=== PATIENT | female | born 1990 | race Caucasian/White ===

== ENCOUNTER 2019-11-15 13:21 | Outpatient (CLI) | payer BC, SELFPAY ==
--- NOTE | ~2019-11-15 | US_ITS ---
US OB limited DATE: 11/15/2019 14:00 INDICATION: Vaginal spotting during TECHNIQUE: Real-time imaging via transabdominal approach COMPARISON: None FINDINGS: There is a live sterling intrauterine gestation. heart rate of 157 bpm. The placenta is anterior fundal. Normal amount of amniotic fluid. No subchorionic hemorrhage is noted. No retropl acental hemorrhage is detected. IMPRESSION: No significant abnormality Reviewed, dictated and finalized at [facility]. Reviewed, dictated and finalized at location A. IMPRESSION: No significant abnormality
== END 2019-11-15 13:22 | disposition home or self-care (01) ==
PROVIDERS: Visit Provider Nurse Practitioner
DX: O26.852 Spotting complicating pregnancy, second trimester (principal); Z3A.00 Weeks of gestation of pregnancy not specified
CPT/HCPCS: 76815

== ENCOUNTER → 2019-12-27 14:37 | Outpatient (CLI) | payer BC, SELFPAY ==
--- NOTE | ~2019-12-27 | US_ITS ---
EXAMINATION: US OB >= 14 weeks Fetus DATE: 12/27/2019 15:09 INDICATION: Second trimester anatomic survey TECHNIQUE: Real-time ultrasound of the pelvis was performed. COMPARISON: None. FINDINGS: There is a single living fetus in vertex presentation. The placenta is fundal. heart rate is 14 8 beats per minute (bpm). cardiac activity and movement are noted. The amniotic fluid in dex is subjectively normal. The following anatomy was identified as normal: 4 chamber heart 3 vessel cord cord insertion kidneys urinary bladder stomach spine diaphragm ventricles cisterna magna cerebellum The following biometric data were obtained: Biparietal diameter (BPD): 4.5 cm; head circumference (HC): 16.9 cm; abdominal circumference (AC): 14 .4 cm; femur length (FL): 2.9 cm. These measurements are concordant. Estimated weight is 294 g +/- 44 g, which correlates with the 8th percentile when 05/12/2020 is used as estimated date of delivery. As single measurements, these parameters are each equal to the following estimated gestational ages w ith ranges of +/- 2 standard deviations: BPD: 19 weeks 5 days ( 18 weeks 0 days - 21 weeks 3 days). HC: 19 weeks 4 days ( 18 weeks 1 days - 21 weeks 1 days). AC: 19 weeks 6 days ( 17 weeks 5 days - 21 weeks 6 days). FL: 19 weeks 0 days ( 17 weeks 2 days - 20 weeks 6 days). estimated gestational age based solely on measurements from this exam is 19 weeks 4 days +/- 1 weeks 3 days. IMPRESSION: 1. Single living fetus in vertex presentation. 2. Estimated weight is 294 g +/- 44 g, which correlates with the 8th percentile when 05/12/2020 is used as estimated date of delivery. Reviewed, dictated and finalized at location A. IMPRESSION: 1. Single living fetus in vertex presentation. 2. Estimated weight is 294 g +/- 44 g, which correlates with the 8th perc entile when 05/12/2020 is used as estimated date of delivery.
== END ==
PROVIDERS: Visit Provider Nurse Practitioner
DX: Z34.92 Encounter for supervision of normal pregnancy, unspecified, second trimester (principal); Z3A.19 19 weeks gestation of pregnancy
CPT/HCPCS: 76805

== ENCOUNTER → 2020-04-04 11:07 | Outpatient (CLI) | payer BC, SELFPAY ==
--- NOTE | ~2020-04-04 | US_ITS ---
US OB follow up DATE: 04/04/2020 11:33 INDICATION: Size less than dates TECHNIQUE: Real-time imaging and Doppler analysis COMPARISON: 12/27/2019 obstetrical ultrasound FINDINGS: Live sterling intrauterine gestation, fetus in vertex presentation. The placenta is fundal . Amniotic fluid index measures 11.2 cm. (5th percentile FRANCISCO: 8.1 cm; 95th percentile [place]ANCIS[place]: 24.8 cm.). Biparietal diameter 8.12 cm; 32 weeks 4 days Head circumference 28.81 cm; 31 weeks 5 days Abdominal circumference 28.22 cm; 32 weeks 2 days Femur length 6.08 cm; 31 weeks 4 days Composite age by Mcgrath formula based upon the current measurements would be 32 weeks +/- 2 weeks 2 days with KYLAH of 05/30/2020, compared to 05/12/2020 by LMP and 05/18/2020 by the prior 12/27/2019 obst etrical ultrasound examination (Third trimester ultrasound estimates of gestational age and not optimally accurate and should not al ter and established gestational age from overlie on the last menstrual period or first or second trim lexis ultrasound estimate.) Femur length/BPD 74.83, within normal range of 71.0-87.0 Head circumference/abdominal circumference 1.02, within normal range of 0.965-1.14 Femur length/abdominal circumference 21.55, within normal range of 20.00-24.00 Femur length/head circumference 21.10, within normal range of 19.10-21.30. Estimated weight is 1888 +/- 83 g IMPRESSION: Amniotic fluid index measures 11.2 cm, within normal range Estimated weight is 1888 +/- 83 g Reviewed, dictated and finalized at [facility]. Reviewed, dictated and finalized at location B.
== END ==
PROVIDERS: Visit Provider Nurse Practitioner
DX: Z36.9 Encounter for antenatal screening, unspecified (principal); Z3A.32 32 weeks gestation of pregnancy
CPT/HCPCS: 76816

== ENCOUNTER 2020-04-29 04:51 | Inpatient (IN) | payer BC, SELFPAY ==
[2020-04-29] VITALS (62 sets, daily range): BP systolic 88–113; BP diastolic 51–84; PULSE 55–103; RESP 16–18; TEMP 36.6–37.1; O2SAT 97–100; BMI 23.8
--- NOTE | 2020-04-29 05:58 | LDADM ---
This patient, Renzo Eisenberg, was admitted to Labor/Delivery/Recovery 103 on 04/29/20 at 04:51. Plans for labor, pain management and were discussed with patient. Patient/family oriented to hospital policies and general routines including ID bracelet, bed and alarms, visiting hours, pain management, procedures, bathroom and other care routines, personal items, smoking policy, room service/diet and guest tray routines, security routines, and visiting hours. Patient/Family are encouraged to report perceived risks to care and to ask questions if they do not understand what they are told or what they should do. See OBIX for further documentation.
[2020-04-29 06:09] LABS: Basophils Percent Auto 0.2 % (0.2-1.2); Eosinophils Absolute Auto 0.1 K/mm3 (0-0.3); Hematocrit 32.5 % (37.0-47.0); Hemoglobin 11.2 g/dL (12.0-15.0); Immature Granulocyte Absolute 0.12 K/mm3 (0.00-0.031); Lymphocytes Absolute Auto 2.14 K/mm3 (0.9-3.2); Lymphocytes Percent Auto 17.1 % (18.3-44.2); Mean Corpuscular HGB Conc 34.5 g/dl (32-36); Mean Platelet Volume 10.6 fl (7.4-10.4); Monocytes Absolute Auto 0.7 K/mm3 (0.1-0.6); Monocytes Percent Auto 5.8 % (2.6-8.5); Neutrophils Absolute Auto 9.4 K/mm3 (1.3-6.7); Neutrophils Percent Auto 74.9 % (45.5-73.1); Platelet Count Result 201 k/mm3 (150-375); Red Blood Count 3.61 M/mm3 (4.2-5.4); Red Cell Distribution Width 12.7 % (11.5-14.5); White Blood Count 12.5 K/mm3 (4.5-10.0)
[2020-04-29] MEDS: OXYTOCIN 30 UNITS/NS 500 ML 30 UNITS/500 ML BAG IV CONT (06:32)
[2020-04-29] MEDS: LACTATED RINGERS 1,000 ML 125 ML IV CONT ×2 (06:32→08:56)
[2020-04-29 07:02] LABS: HIV 1/2 Ab P24 Ag Result Negative (Negative)
--- NOTE | 2020-04-29 07:58 | WPDOBADMIT ---
Obstetrics - Admit Note Admission Note: record reviewed. No pertinent additions to the history and/or any subsequent changes in the physical findings that are not consistent with the expected course of the were found. Additions to the history and/or subsequent changes in the physical findings follow. Here for MIL at 38 wks with IUGR per MFM recommendation. Cervix 370/-2 AROM with clear fluid. FHTs reactive
--- NOTE | 2020-04-29 08:58 | WPDANESEPP ---
Anes - Eval Pre Procedure Procedure: Labor Epidural Date/Time: 04/29/20 08:58 Surgeon: Cha Preop Diagnosis: Pain during labor Pre Op Diagnosis: INDUCTION OF LABOR Patient Data Age: 29 Gender: F Height: 5 ft 6 in Weight: 67 kg Last Vital Signs Temp 36.6 C 04/29/20 06:30 Pulse 93 04/29/20 08:55 BP 104/61 04/29/20 08:55 Pulse Ox 100 04/29/20 08:54 Allergies Allergy/AdvReac Type Severity Reaction Status Date / Time No Known Allergies Allergy Unverified 10/23/15 14:21 Home Medications Medication Instructions Recorded Confirmed Type [id number] fumarate-FA 1 tablet PO DAILY 04/12/20 04/12/20 History [] Laboratory Tests 04/29/20 04/29/20 04/29/20 06:03 06:03 06:03 WBC 12.5 K/mm3 H K/mm3 (4.5-10.0) RBC 3.61 M/mm3 L M/mm3 (4.2-5.4) Hgb 11.2 g/dL L g/dL (12.0-15.0) Hct 32.5 % L % (37.0-47.0) MCV 90.0 fl fl (80-100) MCH 31.0 pg pg (26-34) MCHC 34.5 g/dl g/dl (32-36) RDW 12.7 % % (11.5-14.5) Plt Count 201 k/mm3 k/mm3 (150-375) MPV 10.6 fl H fl (7.4-10.4) Immature Gran % (Auto) 1.0 % H % (0-0.5) Neut % (Auto) 74.9 % H % (45.5-73.1) Lymph % (Auto) 17.1 % L % (18.3-44.2) [place] % (Auto) 5.8 % % (2.6-8.5) Eos % (Auto) 1.0 % % (0-4.4) Baso % (Auto) 0.2 % % (0.2-1.2) Lymph # (Auto) 2.14 K/mm3 K/mm3 (0.9-3.2) [place] # (Auto) 0.7 K/mm3 H K/mm3 (0.1-0.6) Eos # (Auto) 0.1 K/mm3 K/mm3 (0-0.3) Baso # (Auto) 0.0 K/mm3 K/mm3 (0.0-0.1) Abs Immat Gran (auto) 0.12 K/mm3 H K/mm3 (0.00-0.031) Absolute Neuts (auto) 9.4 K/mm3 H K/mm3 (1.3-6.7) Absolute Nucleated RBC 0.0 K/mm3 K/mm3 (0.0-0.012) Nucleated RBC % 0.0 % % (0.0-0.2) RPR Pending HIV 1&2 Ab/P24 Ag 4thGn Negative (Negative) Blood Type Antibody Screen 04/29/20 06:03 WBC RBC Hgb Hct MCV MCH MCHC RDW Plt Count MPV Immature Gran % (Auto) Neut % (Auto) Lymph % (Auto) [place] % (Auto) Eos % (Auto) Baso % (Auto) Lymph # (Auto) [place] # (Auto) Eos # (Auto) Baso # (Auto) Abs Immat Gran (auto) Absolute Neuts (auto) Absolute Nucleated RBC Nucleated RBC % RPR HIV 1&2 Ab/P24 Ag 4thGn Blood Type A Positive Antibody Screen Negative : gestational age (, KYLAH 05/12/20) Patient hx anesthesia problems: none Family hx anesthesia problems: none PMFSH Social History Social History Smoking status: Never smoker Substance use: never Gender identity (if verbalized by the patient): Female Spiritual care concerns: No Exam Day of Procedure 04/29/20 08:58
[2020-04-29 09:01] LABS: Rapid Plasma Reagin Non-Reactive (NonReactive)
--- NOTE | 2020-04-29 11:31 | PM.OBPRVD ---
OB - Delivery Note Procedure Delivery date: 04/29/20 Procedure: events: Labor Induction (IUGR) Intrapartal events: None Induction method: AROM and per pitocin protocol Delivery monitor: external FHT and external uterine Route of delivery: Laceration Description: Perineal - 1st Degree Delivery repair: vicryl (3-0) Specimen: Yes (placenta) Estimated blood loss (mL): 100 Anesthesia type: Epidural Disposition: floor Narrative: manual removal of extra lobe of placenta; small placenta [place] Baby Date of : 04/29/20 Weeks of gestation at delivery: 38 Infant gender: Female presentation: vertex Placenta delivery description: Spontaneous and Manual Removal cord vessel description: 3 Vessels score one minute: 8 score five minutes: 9
--- NOTE | 2020-04-29 11:33 | PM.OBDSVD ---
DS: Admitting Diagnosis Admitting Diagnosis Admitting Diagnosis: INDUCTION OF LABOR 38 wks IUGR DS: Discharge Diagnosis Discharge Diagnosis (1) IUGR (intrauterine growth restriction): Status: Acute (2) (normal spontaneous vaginal delivery): Code(s): O80 - Encounter for full-term uncomplicated delivery Status: Acute OB - DS: Summary OB Procedures : NST and Ultrasound OB Procedures Intrapartum: Spontaneous Vag Delivery OB Procedures: : None Peripartum Data Delivery Method: Natural Vaginal Laceration description: Perineal - 1st Degree complications: retained placenta (extra lobe) Status at Discharge Functional status at discharge: independent ambulation Overall status at discharge: patient is progressing back to baseline Time Spent with Patient Time attestation: Total time spent providing and/or coordinating discharge services: DS: Data Data Completed and Pending Labs on day of discharge: Labs from last 24 hours 04/29/20 04/29/20 04/29/20 06:03 06:03 06:03 WBC 12.5 H RBC 3.61 L Hgb 11.2 L Hct 32.5 L MCV 90.0 MCH 31.0 MCHC 34.5 RDW 12.7 Plt Count 201 MPV 10.6 H Immature Gran % (Auto) 1.0 H Neut % (Auto) 74.9 H Lymph % (Auto) 17.1 L [place] % (Auto) 5.8 Eos % (Auto) 1.0 Baso % (Auto) 0.2 Lymph # (Auto) 2.14 [place] # (Auto) 0.7 H Eos # (Auto) 0.1 Baso # (Auto) 0.0 Abs Immat Gran (auto) 0.12 H Absolute Neuts (auto) 9.4 H Absolute Nucleated RBC 0.0 Nucleated RBC % 0.0 RPR Non-reactive HIV 1&2 Ab/P24 Ag 4thGn Blood Type A Positive Antibody Screen Negative 04/29/20 06:03 WBC RBC Hgb Hct MCV MCH MCHC RDW Plt Count MPV Immature Gran % (Auto) Neut % (Auto) Lymph % (Auto) [place] % (Auto) Eos % (Auto) Baso % (Auto) Lymph # (Auto) [place] # (Auto) Eos # (Auto) Baso # (Auto) Abs Immat Gran (auto) Absolute Neuts (auto) Absolute Nucleated RBC Nucleated RBC % RPR HIV 1&2 Ab/P24 Ag 4thGn Negative Blood Type Antibody Screen Discharge Plan Discharge Attending physician on discharge: Jeannie Eubanks Discharging Clinician: Jeannie Eubanks Anticipated Discharge Date/Time: 04/30/20 11:34 Patient Disposition: Home, Self-Care Activity: may shower and pelvic rest Diet: regular Discharge Instructions: Education: Mom and Baby Guide Given to: Mother Follow-Up: Call your delivering provider's office for an appointment to be seen in: Call for appointment Mom and baby should come to the [facility] for the follow-up appointment. Appointment Date/Time: April at 8:00 a.m. What to expect at your follow-up visit: Blood Pressure Check Physical Assessment Call [phone] if you are unable to keep your appointment time. BREAST CARE: * Wear a snug supportive bra. * For engorgement discomfort: Bottle Feeding: * May apply ice packs EPISIOTOMY/PERINEAL CARE: * Until bleeding stops, use your maria isabel bottle after urinating * Change your pad frequently throughout the day * You may take sitz baths several times a day (fill your bathtub with warm water and soak for 20 minutes.) Do NOT bathe in the water * No tub baths until seen by your physician - You may shower ACTIVITY: * Rest as much as possible. * Do not exercise or lift anything heavier than your baby (such as laundry or other children.) * Avoid stairs or driving as much as possible. * Do not put anything into the vagina. No douching, tampons, or sexual activity until seen by physician. NOTIFY PHYSICIAN IF YOU HAVE ANY QUESTIONS OR IF ANY OF THE FOLLOWING SYMPTOMS OCCUR: * If your perineum becomes red, swollen, or more painful than what you have experienced in the hospital. * If your vaginal bleeding becomes foul smelling. * If your vaginal bleeding becomes more heavy than a period or
[2020-04-29] MEDS: OXYTOCIN 30 UNITS/NS 500 ML 30 UNITS/500 ML BAG 125 UNITS IV CONT (11:51)
[2020-04-29] MEDS: WITCH HAZEL 40 PADS 1 PAD TOPICAL (14:26)
[2020-04-29] MEDS: BENZOCAINE 20% AER SPR (*SP) 56 GM CAN 1 SPRAY TOPICAL (14:26)
--- NOTE | 2020-04-29 14:51 | OBPPTRN ---
1409 Patient transferred to post room #278 via W/C. Support person present. Oriented to unit, room, information board, rooming in, admission packet and security measures. Patient verbalizes understanding.
[2020-04-30] MEDS: IBUPROFEN 600 MG TABLET PO (05:00)
[2020-04-30 05:19] LABS: Hematocrit 31.7 % (37.0-47.0); Hemoglobin 10.7 g/dL (12.0-15.0)
[2020-04-30 08:05] VITALS: BP 96/68; PULSE 85; RESP 18; TEMP 36.6; O2SAT 100
--- NOTE | 2020-04-30 08:06 | WPDANLDPN2 ---
Anes-Prog Note L&D Date/Time: 04/30/20 08:06 Comfortable throughout: labor and delivery Neuraxial method: epidural Epidural/Spinal procedure site: clean & non-tender Neuro status: Neuro function grossly intact. Cardiovascular status: normal Respiratory status: normal Airway patency: baseline Mental status: baseline Post-Op hydration status: normal Vital Signs: Last Vital Signs Temp 98.7 F 04/29/20 20:45 Pulse 90 04/29/20 20:45 Resp 18 04/29/20 20:45 BP 111/58 L 04/29/20 20:45 Pulse Ox 99 04/29/20 20:45 Pain score (VAS): 07/13 Patient feedback: Patient satisfied with anesthetic care.
[2020-04-30] MEDS: DOCUSATE SODIUM 100 MG CAPSULE PO (08:09)
[2020-04-30 08:15] VITALS: PULSE 90; RESP 18; O2SAT 99
--- NOTE | 2020-04-30 08:30 | PM.OBPNVD ---
OB - PN: Subj Subjective Date/time seen: 04/30/20 08:30 S: doing well no complaints desires home today OB - PN: Obj Data Labs CBC & Chem 7: 04/30/20 04:59 Labs: Laboratory Results - last 24 hr 04/29/20 04/30/20 06:03 04:59 Hgb 10.7 L Hct 31.7 L RPR Non-reactive OB - PN A/P Assessment and Plan (1) (normal spontaneous vaginal delivery): Code(s): O80 - Encounter for full-term uncomplicated delivery Status: Acute Assessment and Plan: will d/c home to discuss control at pp visit. Time Spent With Patient Time: Total time spent is greater than 50% in coordination of care (as documented) at patient's floor/unit and/or counseling patient: Exam : Other: ff below umbilicus
--- NOTE | 2020-04-30 11:11 | PC.NURSE ---
Patient was given the opportunity to view the discharge video Mother & Baby Care, The First Two Weeks and to ask questions. Patient declined viewing the video and has been given the mother/baby guide for home reference.
== END 2020-04-30 13:10 | disposition home or self-care (01) | DRG 807 ==
LOC: ANHLDR 11:35 → ANHOB2 04-30 10:58 → ANHLDR 05-01 11:18 → ANHOB2 05-01 11:18
PROVIDERS: Admitting Provider Obstetrics & Gynecology Gynecology; Visit Provider Obstetrics & Gynecology
DX: O36.5930 Maternal care for other known or suspected poor fetal growth, third trimester, not applicable or unspecified (principal); Z37.0 Single live birth; Z3A.38 38 weeks gestation of pregnancy; O70.0 First degree perineal laceration during delivery; O43.893 Other placental disorders, third trimester
CPT/HCPCS: 36415; 85014; 85018; 85025; 86592; 86703; 86850; 86900; 86901; 88307; A9270; G0432; J2590; J2795; J7120